=== PATIENT | female | born 1960 | race Caucasian/White ===

== ENCOUNTER → 2017-10-02 | Outpatient (CLI) | payer BC ==
[~2017-10-02] MED LIST: AMOX-559 PO; BUDE10.2 INH; CIPR-344 PO; FLUT16SP19 NS; GABA-549 PO; MONT10TA4 PO; OMEP-218 PO; TURM1POW3 MC
== END ==
LOC: LAB 15:31
PROVIDERS: ATTEND Otolaryngology
DX: J01.90 Acute sinusitis, unspecified (principal)
CPT/HCPCS: 87071

== ENCOUNTER → 2017-11-10 | Outpatient (CLI) | payer BC ==
[~2017-11-10] MED LIST changes: +DOXY-179 PO
[2017-11-10 15:28] LABS: PLATELET COUNT, AUTOMATED 288 K/uL (150-450)
[2017-11-10 15:37] LABS: INR 0.94
--- NOTE | 2017-11-10 16:03 | EKG ---
FACILITY: [facility] PATIENT NAME: PAWAN GARCIA : [id number] MR: [id number] V: [id number] EXAM DATE: ORDERING PHYSICIAN: OSMAN CHARLTON TECHNOLOGIST: JOSE JUAN Rubalcava Reason : PRE-OP Blood Pressure : / mmHG Vent. Rate : 052 BPM Atrial Rate : 052 BPM P-R Int : 118 ms QRS Dur : 080 ms QT Int : 418 ms P-R-T Axes : 034 075 062 degrees QTc Int : 388 ms Sinus bradycardia No acute appearing findings No previous ECGs available Confirmed by QUOC MESSINA ([id number]) on 11/10/2017 5:43:53 PM Referred By: ZOLTAN Confirmed By:QUOC MESSINA
== END ==
LOC: LAB 15:07
PROVIDERS: ATTEND Otolaryngology
DX: Z01.818 Encounter for other preprocedural examination (principal); R00.1 Bradycardia, unspecified
CPT/HCPCS: 36415; 82040; 82247; 82310; 82374; 82435; 82565; 82947; 84075; 84132; 84155; 84295; 84450; 84460; 84520; 85025; 85610; 85730; 93005

== ENCOUNTER → 2017-11-10 | Outpatient (CLI) | payer BC ==
--- NOTE | 2017-11-10 16:16 | RADIOLOGY IMAGING REPORT ---
FAC[facility] PATIENT NAME: Brittany Corona : 1960 MR: [id number] V: [id number] EXAM DATE: ORDERING PHYSICIAN: OSMAN CHARLTON TECHNOLOGIST: Location: [facility] Patient: Brittany Corona : 1960 Visit/Account:[id number] Date of Sevice: 11/10/2017 SINUSES W/O CONTRAST COMPARISONS: None ADDITIONAL PERTINENT HISTORY: Chronic sinusitis TECHNIQUE: Multiple axial images were obtained through the paranasal sinuses with coronal and sagitta l reformatted images. No IV contrast was administered. One of the following dose optimization techni ques was utilized in the performance of this exam: Automated exposure control; adjustment of the mA a nd/or kV according to the patient's size; or use of an iterative reconstruction technique. Specific details can be referenced in the facility's radiology CT exam operational policy. FINDINGS: Postoperative changes: Previous internal right sphenoid sinusotomy. Previous bilateral medial antros tomies and uncinectomies. Maxillary sinuses: Severe mucosal thickening involving both maxillary sinuses.. Frontal sinuses: Complete opacification of both frontal sinuses.. Ethmoid air cells: Previous ethmoidectomies. Near-complete opacification of the ethmoid air cell def ects. Masslike region involving the posterior aspects of the left ethmoid air cells and nasal cavity compatible with an underlying nasal polyp. Sphenoid sinuses: Marked mucosal thickening involving the right sphenoid sinus. Mild mucosal thicken ing involving the left sphenoid sinus.. Nasal septum: Moderate nasal septal deviation to the right.. Drainage pathways: Findings concerning for near complete opacification at the level of the left media l antrostomy. Opacification at the level of the frontal recesses bilaterally. Paranasal variance: None Medial orbital rodriguez, cribriform plate, and orbital floors: Negative. Visualized bony skull base Negative. Visualized intracranial contents: Negative. Orbits and surrounding soft tissues: Negative. IMPRESSION: 1. Continued extensive paranasal sinus disease with obstructive paranasal sinus disease involving alexander th frontal sinuses. 2. Previous paranasal sinus surgery as discussed above. 3. Findings concerning for an underlying nasal polyp involving the posterior aspects of the left hugo al cavity. Report Dictated By: Yonathan Lea MD at 11/10/2017 3:22 PM Report E-Signed By: Yonathan Lea MD at 11/10/2017 4:12 PM WSN:[id number]
== END ==
LOC: CT 14:11
PROVIDERS: ATTEND Otolaryngology
DX: J32.0 Chronic maxillary sinusitis (principal)
CPT/HCPCS: 70486